=== PATIENT | female | born 1990 | race Caucasian/White ===

== ENCOUNTER 2022-04-17 05:00 | Inpatient (IN) | payer OTHER ==
[2022-04-17 06:29] VITALS: BMI 46.6
[2022-04-17] MEDS ORDERED: BUTORPHANOL TARTRATE 1 MG/ML VIAL IVPB PRN (06:44)
[2022-04-17] MEDS ORDERED: ELECTROLYTE-148 SOLN 1,000 ML IV SCH ×2 (06:45→07:00)
[2022-04-17] MEDS ORDERED: AMPICILLIN - 2 GM in SODIUM CHLORIDE 100 ML IVPB ONE ×2 (06:46→06:51)
[2022-04-17 07:25] LABS: BASO % 0.4 % (0-2.0); EOS % 0.5 % (0-4.5); HEMATOCRIT 42.6 % (32.4-45.2); HEMOGLOBIN 13.9 GM/dL (10.7-15.3); LYMPH % 28.7 % (8-40); MCH 28.7 pg (25.7-33.7); MCHC 32.7 g/dl (32.0-36.0); MEAN CELL VOLUME 87.6 fl (80-96); MEAN PLT VOLUME 10.1 fl (7.5-11.1); MONO % 6.4 % (3.8-10.2); PLATELET COUNT 226 10^3/uL (134-434); RBC 4.86 M/mm3 (3.60-5.2); RDW 16.2 % (11.6-15.6); WHITE BLOOD COUNT 14.1 K/mm3 (4.0-10.0)
[2022-04-17 07:31] LABS: INR 0.88 (0.83-1.09); PROTHROMBIN TIME (PATIENT) 10.1 SEC (9.7-13.0)
[2022-04-17 07:34] LABS: ACTIVATED PTT 26.1 SECONDS (25.2-36.5)
[2022-04-17 07:43] LABS: BLOOD UREA NITROGEN 7.6 mg/dL (7-18); CALCIUM 9.3 mg/dL (8.5-10.1)
[2022-04-17 07:44] LABS: ALBUMIN 2.6 g/dl (3.4-5.0)
[2022-04-17 07:46] LABS: CREATININE 0.5 mg/dL (0.55-1.3)
[2022-04-17 07:48] LABS: BILIRUBIN,TOTAL 0.2 mg/dL (0.2-1); TOT PROT 6.4 g/dl (6.4-8.2)
[2022-04-17 08:17] LABS: SYPHILIS W/ RPR CONF NON-REACTIVE (NONREACTIVE)
[2022-04-17] MEDS ORDERED: OXYTOCIN 30 UNITS in 0.9% NS 30 UNIT/500 ML INFUS.BAG IVPB SCH (08:30)
[2022-04-17 08:45] LABS: HIV INTERPRETATION NEGATIVE (NEGATIVE)
[2022-04-17] MEDS ORDERED: AMPICILLIN - 1 GM in SODIUM CHLORIDE 100 ML IVPB SCH (11:00)
[2022-04-17] MEDS ORDERED: FENTANYL/BUPIVACAINE/NS/PF - PCEA - 50 ML DISP.SYRIN EP ONE ×2 (11:42→15:47)
[2022-04-17] MEDS ORDERED: BUPIVACAINE HCL/PF 0.25% (2.5MG/ML) 10 ML VIAL ONE ×2 (11:45→17:15)
[2022-04-17] MEDS: FENTANYL/BUPIVACAINE/NS/PF - PCEA - 50 ML DISP.SYRIN EP SCH ×2 (12:00→15:50)
[2022-04-17] MEDS ORDERED: NALOXONE HCL 0.4 MG/ML VIAL IVPUSH PRN (12:06)
[2022-04-17] MEDS ORDERED: OXYTOCIN 30 UNITS in 0.9% NS 30 UNIT/500 ML INFUS.BAG IVPB ONE ×2 (12:12→18:28)
[2022-04-17] MEDS: AMPICILLIN - 1 GM in SODIUM CHLORIDE 100 ML IVPB SCH ×3 (12:39→19:33)
[2022-04-17] MEDS ORDERED: METHYLERGONOVINE MALEATE 0.2 MG/1 ML AMP IM PRN (18:09)
[2022-04-17] MEDS ORDERED: SENNOSIDES/DOCUSATE COMBO (SENNA PLUS) TABLET (UD) PO PRN (18:09)
[2022-04-17] MEDS ORDERED: LIDO 2%/EPI 1:200000 PRESRVFRE (20 ML SDVIAL) ONE ×2 (18:17→18:20)
[2022-04-17] MEDS ORDERED: ONDANSETRON 4 MG/2 ML VIAL ONE (18:26)
[2022-04-17] MEDS ORDERED: DEXAMETHASONE SOD PHOSPHATE 4 MG/1 ML VIAL ONE (18:26)
[2022-04-17] MEDS ORDERED: FENTANYL CITRATE/PF 50 MCG/ML VIAL ONE ×2 (18:33)
[2022-04-17] MEDS ORDERED: morphine SULFATE/PF 1 MG/2 ML (2cc Syringe - QUVA) ONE (18:33)
[2022-04-17] MEDS ORDERED: morphine SULFATE/PF 1 MG/2 ML (2cc Syringe - QUVA) EP ONE (19:05)
[2022-04-17] MEDS ORDERED: ONDANSETRON 4 MG/2 ML VIAL IVPUSH PRN (19:05)
[2022-04-17] MEDS ORDERED: OXYTOCIN 20 UNITS in 0.9% NS 20 UNIT/1,000 ML INFUS.BAG IV ONE (19:26)
[2022-04-17] MEDS: OXYTOCIN 20 UNITS in 0.9% NS 20 UNIT/1,000 ML INFUS.BAG IV SCH (19:30)
[2022-04-17 19:38] LABS: CORD BASE EXCESS -3.2 mmol/L (0-2); CORD HCO3 23.9 mmHg (20-29); CORD PCO2 50.4 mmHg (30-78); CORD pH 7.294 (7.14-7.44)
[2022-04-17 19:43] LABS: CORD BASE EXCESS -3.6 mmol/L (0-2); CORD HCO3 23.4 mmHg (20-29); CORD PCO2 49.2 mmHg (30-78); CORD pH 7.295 (7.14-7.44)
[2022-04-17] MEDS: IBUPROFEN 800 MG/8 ML IJ IVPB PRN (22:23)
[2022-04-18] MEDS: SIMETHICONE 80 MG TAB.CHEW (FP) PO PRN ×2 (02:58→17:23)
[2022-04-18] MEDS: ACETAMINOPHEN 325 MG TABLET (FP) PO PRN (02:58)
[2022-04-18] MEDS: OXYTOCIN 20 UNITS in 0.9% NS 20 UNIT/1,000 ML INFUS.BAG IV SCH (02:59)
[2022-04-18] MEDS ORDERED: oxyCODONE HCL 5 MG TABLET PO PRN (06:09)
[2022-04-18] MEDS: IBUPROFEN 800 MG/8 ML IJ IVPB PRN (08:45)
[2022-04-18] MEDS: FERROUS SO4 325 MG TABLET (FP) PO SCH ×2 (08:49→17:23)
[2022-04-18 09:00] LABS: BASO % 0.1 % (0-2.0); HEMATOCRIT 39.3 % (32.4-45.2); HEMOGLOBIN 12.8 GM/dL (10.7-15.3); LYMPH % 10.5 % (8-40); MCH 28.6 pg (25.7-33.7); MCHC 32.7 g/dl (32.0-36.0); MEAN CELL VOLUME 87.7 fl (80-96); MEAN PLT VOLUME 9.5 fl (7.5-11.1); MONO % 6.4 % (3.8-10.2); PLATELET COUNT 202 10^3/uL (134-434); RBC 4.48 M/mm3 (3.60-5.2); RDW 16.1 % (11.6-15.6); WHITE BLOOD COUNT 20.5 K/mm3 (4.0-10.0)
[2022-04-18] MEDS: PRENATAL VITAMINS W/ FOLIC ACID TABLET (FP) PO SCH (09:45)
[2022-04-18 09:53] LABS: ANISOCYTOSIS 0; HELMET CELLS 0; HOWELL-JOLLY BODIES 0; MACROCYTOSIS 0; OVALOCYTE 0; ROULEAU 0; SICKELED CELLS 0; TARGET CELLS 0; TEAR DROP CELLS 0; TOXIC GRANULATION 0
[2022-04-18] MEDS: IBUPROFEN 600 MG TABLET (FP) PO PRN (17:23)
[2022-04-18] MEDS ORDERED: BISACODYL 10 MG SUPP.RECT RC PRN (18:09)
[2022-04-18] MEDS: oxyCODONE HCL 5 MG TABLET PO PRN (20:00)
[2022-04-19] MEDS: IBUPROFEN 600 MG TABLET (FP) PO PRN ×2 (02:25→16:53)
[2022-04-19] MEDS: SIMETHICONE 80 MG TAB.CHEW (FP) PO PRN ×3 (02:25→21:56)
[2022-04-19] MEDS: oxyCODONE HCL 5 MG TABLET PO PRN ×2 (08:42→21:57)
[2022-04-19] MEDS: FERROUS SO4 325 MG TABLET (FP) PO SCH ×2 (08:42→16:51)
[2022-04-19] MEDS: PRENATAL VITAMINS W/ FOLIC ACID TABLET (FP) PO SCH (09:53)
[2022-04-19] MEDS: ACETAMINOPHEN 325 MG TABLET (FP) PO PRN (10:04)
[2022-04-19] MEDS: OXYTOCIN 20 UNITS in 0.9% NS 20 UNIT/1,000 ML INFUS.BAG IV SCH (13:08)
[2022-04-20] MEDS: IBUPROFEN 600 MG TABLET (FP) PO PRN (02:42)
[2022-04-20] MEDS: SIMETHICONE 80 MG TAB.CHEW (FP) PO PRN (02:42)
[2022-04-20] MEDS: FERROUS SO4 325 MG TABLET (FP) PO SCH (08:47)
[2022-04-20] MEDS ORDERED: KETOROLAC TROMETHAMINE 30 MG/1 ML VIAL IVPUSH ONE (09:39)
[2022-04-20 09:47] LABS: BASO % 0.4 % (0-2.0); EOS % 1.2 % (0-4.5); HEMOGLOBIN 12.5 GM/dL (10.7-15.3); LYMPH % 21.4 % (8-40); MCH 28.9 pg (25.7-33.7); MCHC 32.9 g/dl (32.0-36.0); MEAN PLT VOLUME 9.5 fl (7.5-11.1); PLATELET COUNT 247 10^3/uL (134-434); RBC 4.32 M/mm3 (3.60-5.2); RDW 16.2 % (11.6-15.6)
[2022-04-20] MEDS: PRENATAL VITAMINS W/ FOLIC ACID TABLET (FP) PO SCH (10:26)
[2022-04-20 12:27] VITALS: BP 121/83; RESP 17; TEMP 98
[2022-04-20 17:53] VITALS: PULSE 95
== END 2022-04-20 15:50 | disposition home or self-care (01) | DRG 540 ==
LOC: JLDR 05:00 → J3W 21:33
PROVIDERS: ADMIT Obstetrics & Gynecology; ATTEND Obstetrics & Gynecology
PROC: 10D00Z1 Extraction of Products of Conception, Low, Open Approach (ICD-10-PCS; principal; 2022-04-17)
DX: O36.8330 Maternal care for abnormalities of the fetal heart rate or rhythm, third trimester, not applicable or unspecified (principal); O99.213 Obesity complicating pregnancy, third trimester; Z3A.38 38 weeks gestation of pregnancy; Z37.0 Single live birth
CPT/HCPCS: 36415; 36600; 80053; 82803; 85025; 85610; 85730; 86762; 86780; 86850; 86900; 86901; 87340; 87389; 88307-TC; C9803-CS; U0003; U0005

== ENCOUNTER 2023-09-15 06:10 | Inpatient (IN) | payer OTHER ==
[2023-09-15 06:41] VITALS: BMI 48.6
[2023-09-15] MEDS: ELECTROLYTE-148 SOLN 1,000 ML IV SCH (06:45)
[2023-09-15] MEDS ORDERED: METHYLERGONOVINE MALEATE 0.2 MG/1 ML AMP IM PRN (07:11)
[2023-09-15] MEDS ORDERED: BENZOCAINE 20% 57 GM BOTTLE TP PRN (07:11)
[2023-09-15] MEDS ORDERED: WITCH HAZEL 50% (TUCKS) 40 PAD/JAR PAD TP PRN (07:11)
[2023-09-15] MEDS ORDERED: ELECTROLYTE-148 SOLN 1,000 ML IV SCH (07:15)
[2023-09-15] MEDS: CITRIC ACID/SODIUM CITRATE 30 ML UNIT-DOSE CUP PO ONE (07:34)
[2023-09-15] MEDS ORDERED: IBUPROFEN 600 MG TABLET (FP) PO PRN (07:47)
[2023-09-15] MEDS ORDERED: ONDANSETRON 4 MG/2 ML VIAL IVPUSH PRN (07:47)
[2023-09-15] MEDS ORDERED: ceFAZolin SODIUM 1 GM VIAL ONE (07:54)
[2023-09-15] MEDS ORDERED: SODIUM CHLORIDE 0.9% P/F 10 ML VIAL IJ ONE (07:54)
[2023-09-15] MEDS ORDERED: PHENYLEPHRINE HCL 10 MG/1 ML SINGLE DOSE VIAL ONE (08:14)
[2023-09-15] MEDS ORDERED: OXYTOCIN 10 UNITS/ML VIAL ONE ×3 (08:27→09:20)
[2023-09-15] MEDS ORDERED: METOCLOPRAMIDE HCL INJECTION 10 MG/2 ML VIAL ONE (08:42)
[2023-09-15] MEDS ORDERED: ONDANSETRON 4 MG/2 ML VIAL ONE (08:42)
[2023-09-15] MEDS ORDERED: LIDOCAINE HCL/PF 2% SDV 5ML VIAL ONE (09:20)
[2023-09-15] MEDS ORDERED: OXYTOCIN 20 UNITS in 0.9% NS 20 UNIT/1,000 ML INFUS.BAG IV ONE (09:28)
[2023-09-15] MEDS: OXYTOCIN 20 UNITS in 0.9% NS 20 UNIT/1,000 ML INFUS.BAG IV SCH (09:30)
[2023-09-15 09:39] LABS: CORD BASE EXCESS -1.4 mmol/L (0-2); CORD HCO3 24.2 mmHg (20-29); CORD PCO2 43.7 mmHg (30-78); CORD pH 7.361 (7.14-7.44)
[2023-09-15] MEDS ORDERED: IBUPROFEN 800 MG/8 ML IJ IVPB ONE (11:13)
[2023-09-15] MEDS: IBUPROFEN 800 MG/8 ML IJ IVPB SCH (11:17)
[2023-09-15] MEDS: morphine SULFATE/PF 1 MG/2 ML (2cc Syringe - QUVA) EP ONE (11:28)
[2023-09-15] MEDS: FERROUS SO4 325 MG TABLET (FP) PO SCH (11:28)
[2023-09-15] MEDS: PRENATAL VITAMINS W/ FOLIC ACID TABLET (FP) PO SCH (11:28)
[2023-09-15] MEDS ORDERED: oxyCODONE HCL 5 MG TABLET PO PRN ×2 (19:11)
[2023-09-15] MEDS: SIMETHICONE 80 MG TAB.CHEW (FP) PO PRN (21:17)
[2023-09-16 07:00] LABS: BASO % 0.4 % (0-2.0); EOS % 0.3 % (0-4.5); HEMATOCRIT 34.4 % (32.4-45.2); HEMOGLOBIN 11.3 GM/dL (10.7-15.3); LYMPH % 17.2 % (8-40); MCH 29.4 pg (25.7-33.7); MCHC 32.8 g/dl (32.0-36.0); MEAN CELL VOLUME 89.6 fl (80-96); NEUT % 76.1 % (42.8-82.8); PLATELET COUNT 194 10^3/uL (134-434); RBC 3.84 M/mm3 (3.60-5.2); RDW 15.5 % (11.6-15.6); WHITE BLOOD COUNT 19.1 K/mm3 (4.0-10.0)
[2023-09-16] MEDS ORDERED: BISACODYL 10 MG SUPP.RECT RC PRN (07:11)
[2023-09-16] MEDS: IBUPROFEN 600 MG TABLET (FP) PO PRN (08:02)
[2023-09-16] MEDS: ELECTROLYTE-148 SOLN 500 ML IV SCH ×2 (19:35→19:36)
[2023-09-16] MEDS: ELECTROLYTE-148 SOLN 1,000 ML IV SCH (19:36)
[2023-09-16] MEDS: SENNOSIDES/DOCUSATE COMBO (SENNA PLUS) TABLET (UD) PO PRN (21:05)
[2023-09-16] MEDS: ACETAMINOPHEN 325 MG TABLET (FP) PO PRN (21:06)
[2023-09-17] MEDS: ACETAMINOPHEN 325 MG TABLET (FP) PO PRN (21:08)
[2023-09-18 07:58] LABS: BASO % 0.4 % (0-2.0); EOS % 1.9 % (0-4.5); HEMATOCRIT 31.2 % (32.4-45.2); HEMOGLOBIN 10.2 GM/dL (10.7-15.3); LYMPH % 26.2 % (8-40); MCH 29.5 pg (25.7-33.7); MCHC 32.5 g/dl (32.0-36.0); MEAN CELL VOLUME 90.6 fl (80-96); MONO % 5.8 % (3.8-10.2); NEUT % 65.7 % (42.8-82.8); PLATELET COUNT 210 10^3/uL (134-434); RBC 3.44 M/mm3 (3.60-5.2); RDW 15.6 % (11.6-15.6); WHITE BLOOD COUNT 12.7 K/mm3 (4.0-10.0)
[2023-09-18 10:32] VITALS: BP 126/82; PULSE 102; RESP 16; TEMP 98.6
== END 2023-09-18 12:45 | disposition home or self-care (01) | DRG 540 ==
LOC: JLDR 06:10 → J3W 11:45
PROVIDERS: ADMIT Obstetrics & Gynecology; ATTEND Obstetrics & Gynecology
PROC: 10D00Z1 Extraction of Products of Conception, Low, Open Approach (ICD-10-PCS; principal; 2023-09-15)
DX: O34.211 Maternal care for low transverse scar from previous cesarean delivery (principal); Z3A.39 39 weeks gestation of pregnancy; Z37.0 Single live birth
CPT/HCPCS: 36415; 36600; 80048; 82803; 85025; 85027; 85610; 85730; 86780; 86803; 86850; 86900; 86901; 87340; 88307-TC

== ENCOUNTER 2023-12-04 11:39 | Emergency (ER) | payer OTHER ==
[2023-12-04 11:51] VITALS: BP 112/76; PULSE 83; RESP 18; TEMP 97.7; BMI 42.5
[2023-12-04] MEDS ORDERED: MECLIZINE HCL 25 MG TABLET (FP) ONE (12:31)
[2023-12-04] MEDS ORDERED: ONDANSETRON 4 MG/2 ML VIAL ONE (12:31)
[2023-12-04] MEDS: ONDANSETRON 4 MG/2 ML VIAL IVPUSH ONE (12:57)
[2023-12-04] MEDS: SODIUM CHLORIDE 0.9% 500 ML INFUS.BAG IV ONE (12:57)
[2023-12-04] MEDS: MECLIZINE HCL 25 MG TABLET (FP) PO ONE (12:57)
[2023-12-04 13:05] LABS: BASO % 0.4 % (0-2.0); EOS % 0.5 % (0-4.5); HEMATOCRIT 40.1 % (32.4-45.2); HEMOGLOBIN 13.6 GM/dL (10.7-15.3); LYMPH % 33.8 % (8-40); MCH 28.4 pg (25.7-33.7); MCHC 33.8 g/dl (32.0-36.0); MEAN CELL VOLUME 83.8 fl (80-96); MEAN PLT VOLUME 8.8 fl (7.5-11.1); MONO % 5.7 % (3.8-10.2); NEUT % 59.6 % (42.8-82.8); PLATELET COUNT 255 10^3/uL (134-434); RBC 4.79 M/mm3 (3.60-5.2); WHITE BLOOD COUNT 11.2 K/mm3 (4.0-10.0)
[2023-12-04 13:12] LABS: INR 0.99 (0.83-1.09); PROTHROMBIN TIME (PATIENT) 11.4 SEC (9.7-13.0)
[2023-12-04 13:14] LABS: ACTIVATED PTT 30.4 SECONDS (25.2-36.5)
[2023-12-04 13:27] LABS: POTASSIUM 3.9 mmol/L (3.5-5.1)
[2023-12-04 13:32] LABS: CREATININE 0.6 mg/dL (0.55-1.3)
[2023-12-04 13:33] LABS: PHOSPHOROUS 3.4 mg/dL (2.5-4.9)
[2023-12-04 13:34] LABS: BILIRUBIN,TOTAL 0.4 mg/dL (0.2-1); TOT PROT 7.4 g/dl (6.4-8.2)
[2023-12-04 13:40] LABS: PH,URINE 6.5 (5.0-8.0); URINE APPEARANCE CLEAR; URINE BILIRUBIN NEGATIVE (NEGATIVE); URINE COLOR YELLOW; URINE GLUCOSE (UA) NEGATIVE (NEGATIVE); URINE KETONE NEGATIVE (NEGATIVE); URINE LEUK ESTERASE NEGATIVE (NEGATIVE); URINE NITRITE NEGATIVE (NEGATIVE); URINE PROTEIN NEGATIVE (NEGATIVE); URINE UROBILINOGEN 0.2 mg/dL (0.2-1.0)
[2023-12-04 13:43] LABS: HCG,QUALITATIVE URINE Negative
[2023-12-04 14:09] LABS: CALCIUM 9.2 mg/dL (8.5-10.1)
[2023-12-04 14:10] LABS: ALBUMIN 3.9 g/dl (3.4-5.0); BLOOD UREA NITROGEN 10.5 mg/dL (7-18); MAGNESIUM 2.3 mg/dL (1.8-2.4)
== END 2023-12-04 14:43 | disposition home or self-care (01) ==
LOC: JER 11:39
PROC: 3E033GC Introduction of Other Therapeutic Substance into Peripheral Vein, Percutaneous Approach (ICD-10-PCS; principal; 2023-12-04)
DX: R42 Dizziness and giddiness (principal); R11.0 Nausea; Z20.822 Contact with and (suspected) exposure to COVID-19
CPT/HCPCS: 0241U-QW; 36415; 71046-TC-FY; 80053; 81003; 83735; 84100; 84484; 84703; 85025; 85610; 85730; 87086; 93005; 93010; 96374; 99285-25